=== PATIENT | female | born 1955 | race African-American/Black ===

== ENCOUNTER 2017-08-18 07:39 | Emergency (ER) | payer OTHER ==
[2017-08-18 07:44] VITALS: BP 101/59; PULSE 74; TEMP 99; BMI 27.8
[2017-08-18] MEDS ORDERED: LORATADINE 10 MG TABLET PO ONE (08:01)
--- NOTE | 2017-08-18 08:08 | PDOC ---
History of Present Illness - General Chief Complaint: Rash Stated Complaint: itchy rash Time Seen by Provider: 08/18/17 07:54 - History of Present Illness Initial Comments: 08/18/17 09:20 Chief complaint: Rash History of present illness: Patient complains of itchy red bumps on the trunk and extremities since Wednesday. Denies any new medications or suspicious food ingestions. No history of other skin disease. Has not taken any medication for this rash or used any specific skin preparations Review of systems: Denies recent URI symptoms, sore throat, cough, chest pain, shortness of breath, abdominal pain, nausea, vomiting, diarrhea, joint pains or swelling, myalgias, visual or focal neurologic symptoms, unsteadiness of gait. She does admit noticing a "bump" in her left popliteal region for approximately 1 week as well. Past medical history: High blood pressure, Parkinson's, A. fib. Medications: Metoprolol, several toe, carbidopa, and amantadine. No new medications Social history: Works as a nurse's aide, no tobacco alcohol or nonprescription drugs, active and without significant disability. No contacts. Family history: Reviewed and noncontributory Physical exam: Alert and oriented no acute distress cheerful and cooperative Afebrile, vital signs normal HEENT clear Neck supple without bruit mass or nodes Lungs clear CV irregularly irregular, rate controlled, no murmurs rubs or gallops. No JVD or edema. Pulses full and symmetric Abdomen soft nontender without mass or organomegaly Neurological intact Skin exam reveals multiple individual erythematous papules approximately 0.5 cm in diameter, no blisters, no excoriations. These are distributed over the trunk and extremities. There is also one, approximately 1 cm excoriated lesion in the popliteal fossa on the left. There is no surrounding erythema or induration. This is most likely a superficial varicosity with erosion. Impression: Nonspecific rash, pruritic, possibly urticaria. Precipitating factor uncertain Plan: Trial of antihistamines, avoid hot mass or showers, dermatology follow-up for further evaluation and possible biopsy if no improvement. Patient in no distress and fully ambulatory upon discharge to follow-up as directed Past History - Past Medical History Allergies/Adverse Reactions: Allergies Allergy/AdvReac Type Severity Reaction Status Date / Time No Known Allergies Allergy Verified 08/18/17 07:40 Home Medications: Ambulatory Orders Metoprolol Succinate [Toprol XL -] 25 mg PO DAILY 07/04/11 Diphenhydramine HCl [Benadryl -] 25 mg PO HS #14 capsule 08/18/17 Loratadine [Claritin] 10 mg PO DAILY #14 tablet 08/18/17 Cardiac Disorders: Yes (AFIB) COPD: No Diabetes: Yes HTN: Yes Hypercholesterolemia: Yes - Immunization History Immunization Up to Date: Yes - Suicide/Smoking/Psychosocial Hx Smoking Status: No Smoking History: Never smoked Have you smoked in the past 12 months: No Number of Cigarettes Smoked Daily: 0 Hx Alcohol Use: No Drug/Substance Use Hx: No Substance Use Type: None *Physical Exam - Vital Signs Last Vital Signs Temp Pulse Resp BP Pulse Ox 99 F 74 18 101/59 100 08/18/17 07:40 08/18/17 07:40 08/18/17 07:40 08/18/17 07:40 08/18/17 07:40 *DC/Admit/Observation/Transfer Diagnosis at time of Disposition: Urticaria - Discharge Dispostion Disposition: HOME Condition at time of disposition: Stable Decision to Admit order: No - Prescriptions Prescriptions: Diphenhydramine HCl [Benadryl -] 25 mg PO HS #14 capsule Loratadine [Claritin] 10 mg PO DAILY #14 tablet - Referrals - Patient Instructions Printed Discharge Instructions: DI for Hives Additional Instructions: Avoid hot showers or baths. Cool water/cool compresses. Skin moisturizer. Antihistamines. See vacuum caster if rash gets worse or does not resolve. A skin biopsy might be necessary. - Post Discharge Activity Forms/Work/School Notes: Back to Work
[2017-08-18] MEDS ORDERED: LORATADINE 10 MG TABLET ONE (08:13)
== END 2017-08-18 08:17 | disposition home or self-care (01) ==
LOC: FER 07:39
DX: L50.9 Urticaria, unspecified (principal); I48.91 Unspecified atrial fibrillation; I10 Essential (primary) hypertension; E11.9 Type 2 diabetes mellitus without complications
CPT/HCPCS: 99281-25

== ENCOUNTER 2020-07-06 07:01 | Emergency (ER) | payer OTHER ==
[2020-07-06 08:18] LABS: ALBUMIN 4.1 g/dl (3.4-5.0); BILIRUBIN,TOTAL 0.8 mg/dl (0.2-1); CREATININE 1.1 mg/dl (0.55-1.3); POTASSIUM 4.6 mmol/L (3.5-5.1); TOT PROT 7.1 g/dl (6.4-8.2)
[2020-07-06 08:27] VITALS: BP 103/57; PULSE 73; TEMP 98.5; BMI 27.9
== END 2020-07-06 09:47 | disposition home or self-care (01) ==
LOC: FER 07:01
DX: G20 Parkinson's disease (principal)
CPT/HCPCS: 36415; 71045-TC-FY; 80053; 81003; 84484; 87086; 93005; 99285-25

== ENCOUNTER 2022-02-07 11:34 | Emergency (ER) | payer OTHER ==
[2022-02-07] MEDS ORDERED: KETOROLAC TROMETHAMINE 15 MG/ML VIAL IM ONE (11:58)
[2022-02-07 12:01] VITALS: BP 107/53; PULSE 72; RESP 18; TEMP 98.9; BMI 32.9
[2022-02-07] MEDS ORDERED: KETOROLAC TROMETHAMINE 15 MG/ML VIAL ONE (12:03)
== END 2022-02-07 12:31 | disposition home or self-care (01) ==
LOC: FER 11:34
PROC: 3E0233Z Introduction of Anti-inflammatory into Muscle, Percutaneous Approach (ICD-10-PCS; principal; 2022-02-07)
DX: M25.561 Pain in right knee (principal)
CPT/HCPCS: 99284-25

== ENCOUNTER 2024-08-04 06:24 | Day surgery (SDC) | payer OTHER ==
[2024-08-01 14:40] VITALS: BMI 31.4
[2024-08-04 06:56] VITALS: TEMP 97
[2024-08-04] MEDS ORDERED: PROPOFOL 200 ML ONE (07:13)
[2024-08-04 08:49] VITALS: BP 108/46; PULSE 64; RESP 16
== END 2024-08-04 08:53 | disposition home or self-care (01) ==
LOC: FASU-ENDO 06:24
PROVIDERS: ATTEND Internal Medicine Gastroenterology
PROC: 0DBK8ZX Excision of Ascending Colon, Via Natural or Artificial Opening Endoscopic, Diagnostic (ICD-10-PCS; principal; 2024-08-04 08:02)
DX: Z12.11 Encounter for screening for malignant neoplasm of colon (principal); K63.5 Polyp of colon; K57.30 Diverticulosis of large intestine without perforation or abscess without bleeding; K64.8 Other hemorrhoids; K64.1 Second degree hemorrhoids
CPT/HCPCS: 82962; 88305-TC